=== PATIENT | female | born 1980 ===

== ENCOUNTER 2021-05-05 07:02 | Emergency (ER) | payer SELFPAY ==
[~2021-05-05] VITALS: Ht 175.3 cm; Wt 77.1 kg
[2021-05-05] MEDS ORDERED: TOPIRAMATE 25 MG TAB PO ONE (07:30)
[2021-05-05] MEDS ORDERED: GABAPENTIN 300 MG CAP PO ONE (07:30)
[2021-05-05 09:19] LABS: Basophils # (auto) 0 10 ^3/uL (0-0.2); Basophils % (auto) 0.4 % (0.0-2.0); Eosinophils # (auto) 0 10 ^3/uL (0-0.8); Eosinophils % (auto) 0.3 % (0.0-7.0); Hematocrit 44.5 % (36.0-46.0); Hemoglobin 15.6 g/dL (12.2-16.2); Lymphocytes # (auto) 2.5 10 ^3/uL (0.4-5.4); Lymphocytes % (auto) 33.4 % (10.0-50.0); Mean Corpuscular Hemoglobin 32.7 pg (28.0-32.0); Mean Corpuscular Hgb Conc. 34.9 g/dL (32.0-36.0); Mean Corpuscular Volume 93.6 fL (80.0-100.0); Monocytes # (auto) 0.4 10 ^3/uL (0-1.3); Monocytes % (auto) 5.8 % (0.0-12.0); Neutrophils # (auto) 4.5 10 ^3/uL (1.6-8.6); Neutrophils % (auto) 60.1 % (37.0-80.0); Nucleated Red Blood Cells % 0.1 %; Red Blood Cells 4.76 10^6/uL (4.0-5.20); Red Cell Distribution Width 13.5 % (11.8-14.3); White Blood Cell 7.5 10^3/uL (4.4-10.8)
[2021-05-05 09:25] LABS: Albumin 3.7 g/dL (3.4-5.0); Calcium 8.6 mg/dL (8.5-10.1); Potassium 3.9 mmol/L (3.5-5.1)
[2021-05-05] MEDS ORDERED: LORazepam 2MG/ML-1ML VIAL IV ONE (09:30)
[2021-05-05 09:50] LABS: BUN/Creatinine Ratio 9.7; Bilirubin, Total 0.2 mg/dL (0.2-1.0); Total Protein 7.8 g/dL (6.4-8.2)
[2021-05-05] MEDS ORDERED: IBUPROFEN 600 MG TAB PO ONE (11:15)
[2021-05-05 13:05] VITALS: BP 108/76
== END 2021-05-05 13:20 | disposition home or self-care (01) ==
LOC: ER 07:02 → EDBD 07:02 → ER 13:20
DX: G43.909 Migraine, unspecified, not intractable, without status migrainosus (principal); R25.1 Tremor, unspecified; Z90.710 Acquired absence of both cervix and uterus; Z90.89 Acquired absence of other organs; Z88.1 Allergy status to other antibiotic agents
CPT/HCPCS: 36415; 70450; 80053; 85025; J7060